=== PATIENT | female | born 1990 | race Two or more races ===

== ENCOUNTER 2022-06-10 14:27 | Emergency (ER) | payer MEDICAID ==
[2022-06-10] MEDS ORDERED: predniSONE 20 MG Tab PO ONE (14:48)
[2022-06-10] MEDS ORDERED: diphenhydrAMINE 50 MG Cap PO ONE (14:48)
== END 2022-06-10 15:20 | disposition home or self-care (01) ==
LOC: MW.ED 14:27
DX: L50.9 Urticaria, unspecified (principal); Z79.899 Other long term (current) drug therapy
CPT/HCPCS: 99283; A9270; 99282